=== PATIENT | male | born 1985 | race Caucasian/White ===

== ENCOUNTER 2022-11-02 11:51 | Emergency (ER) | payer OTHER ==
[2022-11-02 12:10] VITALS: BP 133/91; PULSE 98; RESP 20; TEMP 98.7; BMI 33.2
[2022-11-02] MEDS ORDERED: ALBUTEROL SO4 2.5/IPRATROPIUM 0.5 INH SOL 3 ML VIAL.NEB. NEB ONE ×2 (12:13→12:17)
[2022-11-02] MEDS ORDERED: predniSONE 20 MG TABLET (UD) PO ONE (12:13)
[2022-11-02] MEDS ORDERED: predniSONE 20 MG TABLET (UD) ONE (12:17)
== END 2022-11-02 12:53 | disposition home or self-care (01) ==
LOC: FER 11:51
PROC: 3E0F7GC Introduction of Other Therapeutic Substance into Respiratory Tract, Via Natural or Artificial Opening (ICD-10-PCS; principal; 2022-11-02)
DX: J45.901 Unspecified asthma with (acute) exacerbation (principal); R06.02 Shortness of breath; R07.0 Pain in throat; R07.89 Other chest pain
CPT/HCPCS: 99283-25